=== PATIENT | male | born 2000 | race Caucasian/White ===

== ENCOUNTER 2024-05-19 15:27 | Emergency (ER) | payer MEDICAID ==
[~2024-05-19] VITALS: Ht 175.9 cm; Wt 76.7 kg
[2024-05-19 16:01] VITALS: BP 125/90; PULSE 69; RESP 16; TEMP 98.5; O2SAT 100
[2024-05-19] MEDS ORDERED: DIPH25TA53 PO (16:29)
[2024-05-19] MEDS ORDERED: HYDR28CR67 TP (16:29)
== END 2024-05-19 16:31 | disposition home or self-care (01) ==
LOC: MED 15:27
DX: S60.862A Insect bite (nonvenomous) of left wrist, initial encounter (principal); R03.0 Elevated blood-pressure reading, without diagnosis of hypertension; Z79.899 Other long term (current) drug therapy; W57.XXXA Bitten or stung by nonvenomous insect and other nonvenomous arthropods, initial encounter; Y92.89 Other specified places as the place of occurrence of the external cause; Y93.89 Activity, other specified; Y99.8 Other external cause status
CPT/HCPCS: 99282